=== PATIENT | male | born 1960 | race Caucasian/White ===

== ENCOUNTER 2019-04-19 08:29 | Day surgery (SDC) | payer OTHER ==
[2019-04-19] VITALS (17 sets, daily range): BP systolic 119–147; BP diastolic 67–92; PULSE 48–62; RESP 9–24; Ht 180.3 cm; Wt 77.2 kg
[~2019-04-19] VITALS: Ht 180.3 cm; Wt 77.2 kg
[~2019-04-19 08:29] MED LIST: BUPR150T6 ORAL; CEFAZOLIN 2 GM/50 ML (PMX) 50 ML IVPB SCH; FINA5TAB4 ORAL; LAMO200T2 ORAL; LISI10TA2 PO; SERT-165 ORAL; SIMV10TA PO; SOD CHLORIDE 0.9% 1,000 ML IV SCH
--- NOTE | 2019-04-19 10:42 | PREAC ---
Date/Time of Note Date/Time of Note DATE: 04/19/19 TIME: 10:41 Anesthesia Eval and Record Evaluation Time Pre-Procedure Interview DATE: 04/19/19 TIME: 10:41 Age 59 Sex male NPO: 8 hrs Preoperative diagnosis right inguinal hernia Planned procedure right inguinal hernia repair Past Medical History Past Medical History: Includes Cardio: HTN, Dyslipidemia Pulm: Sleep Apnea Surgery & Anesthesia Issues No known issue Meds Anticoagulation: No Beta Richar within 24 hr: No Reason Beta Richar not given: Pt. not on B-Richar Reported Medications Simvastatin* (Zocor*) 10 Mg Tablet, 10 MG PO QHS, #30 TAB 04/19/19 Finasteride* (Finasteride*) 5 Mg Tablet, 1 TAB ORAL DAILY 04/19/19 Lisinopril* (Lisinopril*) 10 Mg Tablet, 10 MG PO DAILY, #30 TAB 04/19/19 Lamotrigine* (Lamotrigine*) 200 Mg Tablet, 1 TAB ORAL DAILY 04/19/19 Bupropion Hcl* (Bupropion XL*) 150 Mg Tab.er.24h, 1 TAB ORAL DAILY 04/19/19 Sertraline Hcl* (Sertraline Hcl*) 100 Mg Tablet, 1 TAB ORAL DAILY 04/19/19 Current Medications Cefazolin Sodium/ Dextrose 50 ml @ 100 mls/hr PRE-OP IVPB ; Start 04/19/19 at 06:00; Stop 04/19/19 at 12:00 Sodium Chloride 1,000 ml @ 75 mls/hr [id number] IV Last administered on 04/19/19at 10:00; Admin Dose 75 MLS/HR; Start 04/19/19 at 06:00; Stop 04/19/19 at 12:00 Meds reviewed: Yes Allergies Coded Allergies: No Known Allergy (Unverified , 04/16/19) Allergies Reviewed: Yes Labs/Studies Labs Reviewed: Reviewed by anesthesiologist test: N/A Pre-procedure Exam Last vitals Vital Signs Date Temp Pulse Resp B/P (MAP) Pulse Ox O2 O2 Flow FiO2 Time Delivery Rate 04/19/19 97.5 59 18 138/78 99 Room Air 10:09 (98) Airway: Adequate mouth opening, Adequate thyromental dist Mallampati: Mallampati II Teeth: Normal Lung: Normal Heart: Normal ASA Physical Status ASA physical status: 2 Emergency: None Planned Anesthetic General/MAC: LMA Planned Pain Management Parenteral pain med Pre-operative Attestations Prior to commencing anesthesia and surgery, the patient was re-evaluated, there was verification of: *The patient's identity *The results of appropriate recent lab work and preoperative vital signs *The above evaluation not changing prior to induction *Anesthetic plan, risk benefits, alternative and complications discussed with patient/family; questions answered; patient/family understands, accepts and wishes to proceed. EN DOWLING Apr 19, 2019 10:42
[2019-04-19] MEDS ORDERED: BUPIVACAINE 0.25% (MPF) 30 ML INJ ONE (10:45)
[2019-04-19] MEDS ORDERED: POLYMYXIN/BACITRACIN 1L IRRIG ONE (10:45)
[2019-04-19] MEDS ORDERED: ROCURONIUM 50 MG INJ ONE (11:02)
[2019-04-19] MEDS ORDERED: PROPOFOL 20 ML ONE (11:02)
[2019-04-19] MEDS ORDERED: CEFAZOLIN 1 GM INJ ONE (11:04)
[2019-04-19] MEDS ORDERED: LIDOCAINE 2% (SDV) 5 ML INJ ONE (11:04)
[2019-04-19] MEDS ORDERED: DEXAMETHASONE 4 MG/ML 5 ML INJ ONE (11:17)
[2019-04-19] MEDS ORDERED: ONDANSETRON 4 MG INJ ONE (11:17)
[2019-04-19] MEDS ORDERED: NEOSTIGMINE 3 MG/3 ML SYRINGE ONE (11:56)
[2019-04-19] MEDS ORDERED: GLYCOPYRROLATE 0.4 MG INJ ONE (11:56)
[2019-04-19] MEDS ORDERED: HYDROCODONE/APAP (5/325) TAB PO ONE (12:00)
--- NOTE | 2019-04-19 12:01 | OPR ---
Date/Time of Note Date/Time of Note DATE: 04/19/19 TIME: 11:55 Operative Report Procedure Date: Apr 19, 2019 Preoperative Diagnosis right incarcerated inguinal hernia Postoperative Diagnosis same Operation/Procedure Performed 1. open right incarcerated inguinal hernia repair with ultrapro medium plus hernia system mesh 2. therapeutic injection of subcutaneous local anesthesia Surgeon see signature line Forecast Analyst none Anesthesia Type: general Estimated Blood Loss: 0 - 10 ml's Transfusion none Specimen none Grafts/Implants none Complications none Pt Condition Post Procedure: stable Indications This is a 5-year-old male with a right incarcerated inguinal hernia. He request surgical repair. Risks alternatives benefits and personal were discussed the patient. Patient expresses understanding and consents to the operation. Procedure Description Patient is taken to the OR and prepped and draped in usual sterile fashion. Surgical timeout was performed. IV antibiotics given. Right inguinal oblique incision was made with a 10 blade. Dissection with cautery was carried down to the external oblique fascia. The external oblique fascia is open with a 15 blade. This incision was extended medial inferiorly lateral sparely with Metzenbaum scissors. Cord structures identified encircled with a Matt drain and retracted out of harm's way. Incarcerated indirect inguinal hernia is identified. Lysis of adhesions was performed and the incarcerated hernia was manually reduced. The defect was then identified and bolster with the disc portion of the ultra pro hernia system mesh. The disc is secured in place the running 0 Prolene from the pubic tubercle along the shelving edge of the inguinal ligament. Superiorly the disc is secured to the internal oblique with interrupted 3-0 Vicryl. Onlay mesh was secured in a similar fashion with a running 0 Prolene from the pubic tubercle along the shelving edge of the i nguinal ligament. Straps are created reapproximate around the cord structures with interrupted 0 Prolene to recreate the inguinal ring. Onlay mesh was secured to the internal oblique with interrupted 0 Vicryl. External oblique fascia is closed with running 3-0 Vicryl. Gee's fascia was closed with interrupted 0 Vicryl. Skin is closed using inzorb observable skin stapler. Th erapeutic contains local anesthesia was injected at the incision site. Steri- Strips and dry dressings were applied. Franny SAVAGE Apr 19, 2019 12:01
[2019-04-19] MEDS: FENTAnyl 50 MCG/ML VIAL IV PRN ×2 (12:29→12:39)
[2019-04-19] MEDS ORDERED: MEPERIDINE 25 MG INJ IV PRN (12:30)
[2019-04-19] MEDS ORDERED: hydrALAzine 20 MG INJ IV PRN (12:30)
[2019-04-19] MEDS ORDERED: HYDROmorphONE 1 MG/5 ML IV SYRINGE IV PRN ×3 (12:30)
[2019-04-19] MEDS ORDERED: LABETALOL HCL 20MG INJ IV PRN (12:30)
[2019-04-19] MEDS ORDERED: FENTAnyl 50 MCG/ML VIAL IV PRN ×2 (12:30)
[2019-04-19] MEDS ORDERED: DIPHENHYDRAMINE 50 MG INJ IV PRN (12:30)
[2019-04-19] MEDS ORDERED: ALBUTEROL 0.083% (NEB) 2.5 MG/3 ML AMP HHN PRN (12:30)
[2019-04-19] MEDS ORDERED: EPHEDrine 25 MG/5 ML SYG IV PRN (12:30)
[2019-04-19] MEDS ORDERED: OXYCODONE/ACETAMINOPHEN (5/325) TAB PO PRN ×2 (12:30)
[2019-04-19] MEDS ORDERED: KETOROLAC 30 MG INJ IV PRN (12:30)
[2019-04-19] MEDS ORDERED: ONDANSETRON 4 MG INJ IV PRN (12:30)
--- NOTE | 2019-04-20 15:02 | RADRPT ---
Vent Rate: 59 bpm RR Interval: 1020 msec VT Interval: 161 msec QRS Duration: 101 msec QT Interval: 427 msec QTC Interval: 423 msec P-R-T [place]: 46 - 64 - 64 degrees Sinus rhythm...normal P axis, V-rate 50- 99 Electronically Signed By: Taras Parisi
--- NOTE | 2019-04-22 12:59 | PAC ---
Date/Time of Note Date/Time of Note DATE: 04/19/2019 TIME: 12:58 Post-Anesthesia Notes Post-Anesthesia Note Last documented vital signs Vital Signs Date Temp Pulse Resp B/P (MAP) Pulse Ox O2 O2 Flow FiO2 Time Delivery Rate 04/19/19 97.6 56 16 147/67 97 Room Air 13:28 (93) Activity: WNL Respiratory function: WNL Cardiovascular function: WNL Mental status: Baseline Pain reasonably controlled: Yes Hydration appropriate: Yes Nausea/Vomiting absent: Yes EN DOWLING Apr 22, 2019 12:59
== END 2019-04-19 14:00 | disposition home or self-care (01) ==
LOC: SDS 08:29
PROVIDERS: ATTEND Surgery
DX: K40.30 Unilateral inguinal hernia, with obstruction, without gangrene, not specified as recurrent (principal); I10 Essential (primary) hypertension; E78.5 Hyperlipidemia, unspecified
CPT/HCPCS: 49507; 93005; C1781; J0690; J1100; J1170; J1200; J1885; J2175; J2405; J2710; J3010; J7030; Z7512; Z7610

== ENCOUNTER 2019-06-10 08:51 | Day surgery (SDC) | payer OTHER ==
[2019-06-10] VITALS (15 sets, daily range): BP systolic 96–128; BP diastolic 51–80; PULSE 49–89; RESP 15–58; Ht 180.3 cm; Wt 78.9 kg
[~2019-06-10] VITALS: Ht 180.3 cm; Wt 78.9 kg
[~2019-06-10 08:51] MED LIST changes: -CEFAZOLIN 2 GM/50 ML (PMX) 50 ML IVPB SCH; -LAMO200T2 ORAL; +LAMO200T6 ORAL; -SOD CHLORIDE 0.9% 1,000 ML IV SCH
[2019-06-10] MEDS ORDERED: SOD CHLORIDE 0.9% 1,000 ML IV SCH (09:00)
[2019-06-10] MEDS ORDERED: CEFAZOLIN 2 GM/50 ML (PMX) 50 ML IVPB ONE (09:00)
[2019-06-10] MEDS ORDERED: ROCURONIUM 50 MG INJ ONE (11:50)
[2019-06-10] MEDS ORDERED: ROPIVACAINE 0.2% 20 ML VIAL ONE (11:50)
[2019-06-10] MEDS ORDERED: DESFLURANE 15 MIN ONE (11:50)
[2019-06-10] MEDS ORDERED: ONDANSETRON 4 MG INJ ONE (11:50)
[2019-06-10] MEDS ORDERED: PROPOFOL 20 ML ONE (11:50)
[2019-06-10] MEDS ORDERED: MIDAZOLAM 1 MG/ML 2 ML INJ ONE (11:50)
[2019-06-10] MEDS ORDERED: METOCLOPRAMIDE 10 MG INJ ONE (11:51)
[2019-06-10] MEDS ORDERED: ROPIVACAINE 0.5 % 30 ML VIAL ONE (11:51)
[2019-06-10] MEDS ORDERED: GLYCOPYRROLATE 0.4 MG INJ ONE (11:52)
[2019-06-10] MEDS ORDERED: CEFAZOLIN 1 GM INJ ONE (11:52)
[2019-06-10] MEDS ORDERED: NEOSTIGMINE 3 MG/3 ML SYRINGE ONE (11:52)
[2019-06-10] MEDS ORDERED: POLYMYXIN/BACITRACIN 1L IRRIG IRR ONE (12:27)
[2019-06-10] MEDS ORDERED: HYDROCODONE/APAP (5/325) TAB PO ONE (13:00)
[2019-06-10] MEDS ORDERED: MEPERIDINE 25 MG INJ ONE (13:08)
[2019-06-10] MEDS: FENTAnyl 50 MCG/ML VIAL IV PRN ×2 (13:15→13:41)
[2019-06-10] MEDS ORDERED: DIPHENHYDRAMINE 50 MG INJ IV PRN (13:30)
[2019-06-10] MEDS ORDERED: ALBUTEROL 0.083% (NEB) 2.5 MG/3 ML AMP HHN PRN (13:30)
[2019-06-10] MEDS ORDERED: FENTAnyl 50 MCG/ML VIAL IV PRN ×2 (13:30)
[2019-06-10] MEDS ORDERED: MEPERIDINE 25 MG INJ IV PRN (13:30)
[2019-06-10] MEDS ORDERED: hydrALAzine 20 MG INJ IV PRN (13:30)
[2019-06-10] MEDS ORDERED: LABETALOL HCL 20MG INJ IV PRN (13:30)
[2019-06-10] MEDS ORDERED: HYDROmorphONE 1 MG/5 ML IV SYRINGE IV PRN ×3 (13:30)
[2019-06-10] MEDS ORDERED: ONDANSETRON 4 MG INJ IV PRN (13:30)
[2019-06-10] MEDS ORDERED: OXYCODONE/ACETAMINOPHEN (5/325) TAB PO PRN ×2 (13:30)
[2019-06-10] MEDS ORDERED: KETOROLAC 30 MG INJ IV PRN (13:30)
== END 2019-06-10 14:33 | disposition home or self-care (01) ==
LOC: SDS 08:51
PROVIDERS: ATTEND Surgery
DX: K40.90 Unilateral inguinal hernia, without obstruction or gangrene, not specified as recurrent (principal); I10 Essential (primary) hypertension; E78.5 Hyperlipidemia, unspecified
CPT/HCPCS: 49507; J0690; J2175; J2250; J2405; J2710; J2765; J2795; J3010; Z7610; C1781